=== PATIENT | female | born 1990 | race Two or more races ===

== ENCOUNTER 2023-12-29 13:07 | Observation (INO) | payer OTHER | END 2023-12-29 14:45 | disposition home or self-care (01) | LOC: UNDOADMOB 13:07 → LDRP 13:07 → UNDODISOB 14:45 | PROVIDERS: ADMIT Obstetrics & Gynecology; ATTEND Obstetrics & Gynecology | DX: O99.283 Endocrine, nutritional and metabolic diseases complicating pregnancy, third trimester (principal); E03.9 Hypothyroidism, unspecified; Z3A.37 37 weeks gestation of pregnancy | CPT/HCPCS: 59025; 76818; 81002; 94760; G0378 ==

== ENCOUNTER 2024-01-06 06:12 | Inpatient (IN) | payer OTHER ==
[2024-01-05 14:44] LABS: Basophils # (auto) 0 10 ^3/uL (0-0.2); Basophils % (auto) 0.3 % (0.0-2.0); Eosinophils # (auto) 0.3 10 ^3/uL (0-0.8); Eosinophils % (auto) 2.9 % (0.0-7.0); Hematocrit 37.3 % (36.0-46.0); Hemoglobin 12.9 g/dL (12.2-16.2); Lymphocytes # (auto) 1.5 10 ^3/uL (0.4-5.4); Lymphocytes % (auto) 15.1 % (10.0-50.0); Mean Corpuscular Hemoglobin 32.6 pg (28.0-32.0); Mean Corpuscular Hgb Conc. 34.6 g/dL (32.0-36.0); Mean Corpuscular Volume 94.3 fL (80.0-100.0); Monocytes # (auto) 0.5 10 ^3/uL (0-1.3); Neutrophils # (auto) 7.6 10 ^3/uL (1.6-8.6); Neutrophils % (auto) 76.7 % (37.0-80.0); Red Blood Cells 3.96 10^6/uL (4.0-5.20); Red Cell Distribution Width 13.4 % (11.8-14.3)
[2024-01-05 14:52] LABS: INR 0.92 (0.9-1.15); Partial Thromboplastin Time 26.1 SEC (24.5-34.5); Prothrombin Time 9.8 sec (9.3-11.8)
[2024-01-05 14:56] LABS: Albumin 3.9 g/dL (3.2-4.8); Alkaline Phosphatase 152 U/L (46-116); Anion Gap 7 (5-15); Aspartate Aminotransferase 16 U/L (13-40); BUN/Creatinine Ratio 17.6 (10.0-20.0); Bilirubin, Total 0.6 mg/dL (0.2-1.0); Blood Urea Nitrogen 9 mg/dL (9-23); Calcium 9.3 mg/dL (8.7-10.4); Carbon Dioxide 22 mmol/L (20-30); Chloride 108 mmol/L (98-107); Glucose 108 mg/dL (74-106); Potassium 3.7 mmol/L (3.5-5.1); Sodium 137 mmol/L (136-145); Total Protein 6.4 g/dL (5.7-8.2)
[2024-01-05 14:58] LABS: Alanine Aminotransferase < 9 U/L (7-40)
[2024-01-05 15:39] LABS: Urine Bacteria FEW /hpf (None Seen); Urine Blood Negative /uL (Negative); Urine Clarity Clear (Clear); Urine Color Colorless (Yellow); Urine Mucus FEW (None Seen); Urine Protein, UAD Negative (Negative); Urine Specific Gravity 1.008 (1.001-1.035); Urine Urobilinogen Normal (Negative); Urine WBC 1 /hpf (0 - 5); Urine pH 6.5 (5.0-9.0)
[2024-01-05 15:51] LABS: Amphetamine Screen, Urine Neg (NEGATIVE); Barbiturate Scree,Urine Neg (NEGATIVE); Benzodiazephine Screen, Urine Neg (NEGATIVE); Cocaine Screen, Urine Neg (NEGATIVE); Opiate Scree,Urine Neg (NEGATIVE)
[2024-01-05 15:52] LABS: Cannabinoid Screen, Urine Neg (NEGATIVE); Phencyclidine Screen, Urine Neg (NEGATIVE)
[2024-01-06] VITALS (14 sets, daily range): BP systolic 94–131; BP diastolic 45–73; PULSE 57–96; RESP 16–18; TEMP 97.9–98; O2SAT 94–98
[~2024-01-06] VITALS: Ht 157.5 cm; Wt 77.1 kg
[2024-01-06 07:07] LABS: RPR Non Reactive (Non Reactive)
[2024-01-06] MEDS ORDERED: MORPHINE SULFATE 4 MG/ML SYR/VIAL IV PRN (09:15)
[2024-01-06] MEDS ORDERED: HYDROcodone-ACET 5/325MG TAB PO PRN (09:15)
[2024-01-06] MEDS: ceFAZolin 2 GM/D5W50ml 50 ML IV ONE (09:24)
[2024-01-06] MEDS: LACTATED RINGER'S 1,000 ML IV ONE (09:26)
[2024-01-06] MEDS: LACTATED RINGER'S 1,000 ML IV SCH ×2 (09:26→12:38)
[2024-01-06] MEDS ORDERED: MORPHINE SULF PF 5 MG/10 ML VIAL ONE (09:29)
[2024-01-06] MEDS ORDERED: fentaNYL CITRATE 100 MCG/2 ML VL ONE (09:29)
[2024-01-06] MEDS ORDERED: OXYTOCIN 10UNIT/ML 1ML VIAL ONE (09:31)
[2024-01-06] MEDS ORDERED: PHENYLEPHRINE HCL 10 MG/ML VL ONE (09:31)
[2024-01-06] MEDS ORDERED: METOCLOPRAMIDE HCL 5MG/ml INJ 2ml VIAL ONE (09:31)
[2024-01-06] MEDS ORDERED: ONDANSETRON HCL 4 MG/2 ML VIAL ONE (09:31)
[2024-01-06] MEDS ORDERED: DexAMETHasone SOD PHOS 10MG/1ML VIAL INJ ONE (09:32)
[2024-01-06] MEDS: BUPIVACAINE HCL 0.25% P/F 10 ML VIAL ONE (11:10)
[2024-01-06] MEDS ORDERED: diphenhdrAMINE HCL 50 MG/1 ML VL IV PRN (11:30)
[2024-01-06] MEDS ORDERED: DexAMETHasone SOD PHOS 10MG/1ML VIAL INJ IV PRN (11:30)
[2024-01-06] MEDS ORDERED: NALOXONE HCL 0.4 MG/ML VIAL IV PRN (11:30)
[2024-01-06] MEDS ORDERED: ONDANSETRON HCL 4 MG/2 ML VIAL IV PRN (11:30)
[2024-01-06] MEDS: ONDANSETRON HCL 4 MG/2 ML VIAL IV PRN (12:31)
[2024-01-06] MEDS: ACETAMINOPHEN IV 1000 MG/100ML (10MG/ML) IV PRN ×2 (13:53→21:55)
[2024-01-06] MEDS: ceFAZolin 1GM/50ML 50 ML IV SCH (17:33)
[2024-01-07] VITALS (15 sets, daily range): BP systolic 91–115; BP diastolic 49–76; PULSE 50–89; RESP 15–20; TEMP 97.8–98.4; O2SAT 92–99
[2024-01-07] MEDS ORDERED: ACETAMINOPHEN IV 1000 MG/100ML (10MG/ML) IV PRN (00:15)
[2024-01-07] MEDS: ceFAZolin 1GM/50ML 50 ML IV SCH (01:24)
[2024-01-07] MEDS: KETOROLAC TROMETH 30 MG/ML 1ML VIAL IV PRN (02:19)
[2024-01-07] MEDS: ACETAMINOPHEN IV 1000 MG/100ML (10MG/ML) IV PRN (05:54)
[2024-01-07 06:31] LABS: Basophils # (auto) 0 10 ^3/uL (0-0.2); Basophils % (auto) 0.1 % (0.0-2.0); Eosinophils # (auto) 0 10 ^3/uL (0-0.8); Eosinophils % (auto) 0.1 % (0.0-7.0); Hematocrit 30.9 % (36.0-46.0); Hemoglobin 10.7 g/dL (12.2-16.2); Lymphocytes # (auto) 1.5 10 ^3/uL (0.4-5.4); Lymphocytes % (auto) 10.2 % (10.0-50.0); Mean Corpuscular Hemoglobin 32.6 pg (28.0-32.0); Mean Corpuscular Hgb Conc. 34.7 g/dL (32.0-36.0); Monocytes # (auto) 1.1 10 ^3/uL (0-1.3); Monocytes % (auto) 7.3 % (0.0-12.0); Neutrophils # (auto) 12.4 10 ^3/uL (1.6-8.6); Neutrophils % (auto) 82.3 % (37.0-80.0); Nucleated Red Blood Cells % 0.1 %; Red Blood Cells 3.29 10^6/uL (4.0-5.20); Red Cell Distribution Width 13.3 % (11.8-14.3); White Blood Cell 15.1 10^3/uL (4.4-10.8)
[2024-01-07] MEDS: AMMONIA 0.33 ML INHALANT IN ONE (06:32)
[2024-01-07] MEDS: NS/OXYTOCIN 20UNITS 1,000 ML IV SCH (06:33)
[2024-01-07] MEDS ORDERED: HYDROcodone-ACET 5/325MG TAB PO PRN ×2 (11:00)
[2024-01-07] MEDS: LEVOTHYROXINE SODIUM 88 MCG TAB PO ONE (13:01)
[2024-01-07] MEDS: IBUPROFEN 800 MG TAB PO PRN (13:01)
[2024-01-07] MEDS: ACETAMINOPHEN 325 MG TAB PO PRN (15:56)
[2024-01-07] MEDS: SIMETHICONE 80 MG CHEWABLE TABLET PO SCH (17:58)
[2024-01-07] MEDS: DOCUSATE SOD 100 MG CAP PO SCH (22:17)
[2024-01-08 03:00] VITALS: BP 98/55; PULSE 85; RESP 16; TEMP 97.9; O2SAT 97
[2024-01-08 06:51] VITALS: BP 106/64; PULSE 76; RESP 16; TEMP 98.1; O2SAT 98
[2024-01-08] MEDS: LEVOTHYROXINE SODIUM 88 MCG TAB PO SCH (06:57)
[2024-01-08] MEDS ORDERED: IBUP-1455 PO (08:05)
[2024-01-08] MEDS ORDERED: HYDR-4902 PO (08:05)
[2024-01-08] MEDS: DOCUSATE CALCIUM 240 MG CAP PO SCH (10:27)
[2024-01-08 19:06] LABS: Treponema pallidum Ab (FTA-Ab) Non Reactive (Non Reactive)
== END 2024-01-08 10:47 | disposition home or self-care (01) | DRG 787 ==
LOC: UNDOADMIN 06:12 → LDRP 06:12
PROVIDERS: ADMIT Obstetrics & Gynecology; ATTEND Obstetrics & Gynecology
PROC: 10D00Z1 Extraction of Products of Conception, Low, Open Approach (ICD-10-PCS; principal; 2024-01-06 10:10)
DX: O34.211 Maternal care for low transverse scar from previous cesarean delivery (principal); R71.0 Precipitous drop in hematocrit; O99.284 Endocrine, nutritional and metabolic diseases complicating childbirth; E03.9 Hypothyroidism, unspecified; Z37.0 Single live birth; Z3A.39 39 weeks gestation of pregnancy; O99.893 Other specified diseases and conditions complicating puerperium
CPT/HCPCS: 36415; 59025; 80053; 80307; 81001; 81002; 82962; 85025; 85610; 85730; 86592; 86803; 86850; 86900; 86901; 87340; 94760; 96360; 96361; G0378; J0131; J1100; J1885; J2405; J3490